=== PATIENT | female | born 1970 | race Caucasian/White ===

== ENCOUNTER 2018-01-17 23:36 | Emergency (ER) | payer BC ==
[2018-01-18] MEDS: IBUPROFEN 600 MG TAB PO (03:52)
== END 2018-01-18 05:20 | disposition home or self-care (01) ==
LOC: FTE 23:36
DX: S02.2XXA Fracture of nasal bones, initial encounter for closed fracture (principal); W20.8XXA Other cause of strike by thrown, projected or falling object, initial encounter; Y92.9 Unspecified place or not applicable
CPT/HCPCS: 12011; 70486; 99284-25